=== PATIENT | male | born 1950 | race Caucasian/White ===

== ENCOUNTER 2020-03-20 19:16 | Emergency (ER) | payer OTHER | END 2020-03-20 19:29 | disposition home or self-care (01) | LOC: JVIRT 19:16 | DX: Z03.818 Encounter for observation for suspected exposure to other biological agents ruled out (principal) | CPT/HCPCS: C9803; Q3014-GT; U0003 ==

== ENCOUNTER 2022-04-18 14:05 | Emergency (ER) | payer OTHER ==
[2022-04-18 14:31] VITALS: BP 128/71; PULSE 78; RESP 16; TEMP 97.9; BMI 29.1
== END 2022-04-18 15:35 | disposition home or self-care (01) ==
LOC: FER 14:05
DX: M79.662 Pain in left lower leg (principal)
CPT/HCPCS: 93971-TC; 99284-25